=== PATIENT | male | born 2000 | race Hispanic/Latino ===

== ENCOUNTER 2022-03-01 19:11 | Emergency (ER) | payer MEDICAID, OTHER ==
[~2022-03-01] VITALS: Ht 172.7 cm; Wt 58.1 kg
[2022-03-01] MEDS ORDERED: ACETAMINOPHEN 325 MG TAB ONE (19:43)
[2022-03-01] MEDS ORDERED: IBUPROFEN 800 MG TAB ONE (19:43)
[2022-03-01] MEDS ORDERED: ACETAMINOPHEN 500 MG TABLET ONE (19:46)
[2022-03-01] MEDS ORDERED: ONDA4TAB10 PO (19:55)
[2022-03-01] MEDS ORDERED: IBUP-2071 PO (19:55)
[2022-03-01] MEDS ORDERED: D-ME1POW16 PO (19:55)
[2022-03-01] MEDS ORDERED: IBUPROFEN 800 MG TAB PO ONE (20:00)
[2022-03-01] MEDS ORDERED: ONDANSETRON 4MG INJ IVP ONE (20:00)
[2022-03-01] MEDS ORDERED: 0.9%NACL 1000ML 1,000 ML IV SCH (20:00)
[2022-03-01] MEDS ORDERED: ACETAMINOPHEN 500 MG TABLET PO ONE (20:00)
[2022-03-01 20:51] VITALS: BP 117/73
== END 2022-03-01 20:54 | disposition home or self-care (01) ==
LOC: EDH 19:11
DX: J10.1 Influenza due to other identified influenza virus with other respiratory manifestations (principal); E86.0 Dehydration
CPT/HCPCS: 99283; 96374; 96361; J2405